=== PATIENT | male | born 1945 | race Caucasian/White ===

== ENCOUNTER 2017-11-28 17:16 | Emergency (ER) | payer MEDICARE ==
[~2017-11-28] VITALS: Ht 188 cm; Wt 122.0 kg
[~2017-11-28 17:16] MED LIST: AMOXICILLIN/CL875 MG PO; AUGMENTIN875TAB PO; LOTENSIN HCT1 TA2 PO; PROAIR HFA IN; QVAR80 MCG IN; REZYST250 MG PO; TOBRAMYCIN0.3 % OD; ZOFRAN4 M1 PO
[2017-11-28 18:15] LABS: HEMATOCRIT 49.2 % (39.0-50.0); HEMOGLOBIN 15.9 g/dl (14.0-18.0); IMMATURE GRANULOCYTES 0.5 % (0.0-5.0); MEAN CELL VOLUME 90.8 fL CALC (80.0-100.0); MEAN CORPUSCULAR HGB 29.3 pG CALC (26.0-32.0); MEAN CORPUSCULAR HGB CONC 32.3 g/L CALC (32.0-36.0); NEUT# 6.74 thou/uL (1.82-7.42); RED BLOOD COUNT 5.42 mill/uL (4.70-6.10); RED CELL DISTRI WIDTH 14.1 % (11.5-15.5)
[2017-11-28 18:35] LABS: ALBUMIN 4.3 g/dL (3.2-5.0); ALKALINE PHOSPHATASE 73 u/l (38-126); ANION GAP 14 (6-22 (CALC)); BILIRUBIN, TOTAL 0.5 mg/dL (0.0-1.4); BUN 17 mg/dL (8-23); BUN/CREATININE RATIO 18 (12-20 (CALC)); CARBON DIOXIDE 33 mmol/l (22-30); CHLORIDE 99 mmol/l (95-108); CREATININE 0.9 mg/dL (0.7-1.3); GFR > 60 ML/MIN (>=60 (CALC)); GFR FOR AFR.AMER. > 60 ML/MIN (>=60 (CALC)); POTASSIUM 4.4 mmol/l (3.5-5.1); SGOT/AST 21 u/l (19-48); SODIUM 141 mmol/l (137-146); TOTAL PROTEIN 7.8 g/dL (6.3-8.2)
--- NOTE | 2017-11-28 19:57 | NUR ---
BREATHING TREATMENT GIVEN USING A MOUTH PEICE. BREATHING TECH. FOR GOOD DEPOSITION TO THE LUNGS.
[2017-11-28] MEDS ORDERED: ADVAIR DISK1 INH (20:08)
[2017-11-28] MEDS ORDERED: PROAIR HFA108 MCG/AC IN (20:09)
[2017-11-28 20:24] VITALS: BP 158/68
== END 2017-11-28 20:32 | disposition home or self-care (01) ==
LOC: ED 17:16
PROVIDERS: Emergency Medicine
DX: J44.9 Chronic obstructive pulmonary disease, unspecified (principal); Z87.891 Personal history of nicotine dependence; R07.9 Chest pain, unspecified; R06.02 Shortness of breath; R11.0 Nausea; I10 Essential (primary) hypertension; R06.01 Orthopnea; R79.1 Abnormal coagulation profile